=== PATIENT | male | born 1965 | race Caucasian/White ===

== ENCOUNTER 2016-04-11 12:25 | Day surgery (SDC) | payer BC ==
[2016-04-10 14:27] VITALS: BMI 32.5
[2016-04-11 14:02] VITALS: TEMP 97.5
[2016-04-11 14:29] VITALS: PULSE 80
[2016-04-11 15:38] VITALS: BP 119/69
--- NOTE | 2016-04-15 13:42 | PATH ---
Surgical Pathology Report Patient Name: RICHMOND ISLAS [facility]. Rec. #: [id number] /Age/Gender: 1965 (Age: 50) / M Account: [id number] Location: [facility]-ENDOSCOPY Taken: 04/11/2016 Received: 04/14/2016 Reported: 04/15/2016 Physicians: Phu Ruano M.D. Specimen(s) Received A: POLYPS TRANSVERSE B: POLYPS SIGMOID Clinical History Screening Redundant colon, moderately severe diverticulosis, colon polyps Final Diagnosis A. COLON, TRANSVERSE, POLYPS, POLYPECTOMY: FRAGMENTS OF TUBULAR ADENOMA. B. COLON, SIGMOID, POLYPS, POLYPECTOMY: FRAGMENTS OF HYPERPLASTIC POLYP. Electronically Signed Augustine Abebe M.D. Gross Description A. Received in formalin, labeled "polyps transverse" are 5 melara, irregular portions of soft tissue ranging from 0.2-0.3 cm in greatest dimension. The specimens are submitted in toto in one cassette. B. Received in formalin, labeled "polyps sigmoid" are 6 melara, irregular portions of soft tissue ranging from 0.1-0.3 cm in greatest dimension. The specimens are submitted in toto in one cassette. DL/04/14/2016 saudi04/14/2016
== END 2016-04-11 15:37 | disposition home or self-care (01) ==
LOC: JASU-ENDO 12:25
PROVIDERS: ATTEND Internal Medicine Gastroenterology
PROC: 0DBN8ZX Excision of Sigmoid Colon, Via Natural or Artificial Opening Endoscopic, Diagnostic (ICD-10-PCS; 2016-04-11)
PROC: 0DBL8ZX Excision of Transverse Colon, Via Natural or Artificial Opening Endoscopic, Diagnostic (ICD-10-PCS; 2016-04-11)
PROC: 0DBK8ZX Excision of Ascending Colon, Via Natural or Artificial Opening Endoscopic, Diagnostic (ICD-10-PCS; principal; 2016-04-11 13:30)
DX: Z12.11 Encounter for screening for malignant neoplasm of colon (principal); K63.89 Other specified diseases of intestine; D12.2 Benign neoplasm of ascending colon; D12.3 Benign neoplasm of transverse colon; D12.5 Benign neoplasm of sigmoid colon; K57.30 Diverticulosis of large intestine without perforation or abscess without bleeding; K64.8 Other hemorrhoids
CPT/HCPCS: 88305-TC